=== PATIENT | male | born 1985 | race Caucasian/White ===

== ENCOUNTER 2022-10-05 10:23 | Emergency (ER) | payer OTHER, SELFPAY ==
--- NOTE | ~2022-10-05 | CT_ITS ---
EXAMINATION: CT abdomen pelvis w con DATE: 10/05/2022 13:04 INDICATION: Abdomen pain TECHNIQUE: Computed tomography (CT) of the abdomen and pelvis was performed with 100 cc Omnipaque 350 intravenous contrast. The dose-length product was 369.36 mGy-cm. Automated exposure control and iter ative reconstruction technique were employed. COMPARISON: No prior studies for comparison. . FINDINGS: Lung bases are unremarkable. Heart size normal. No significant pleural or pericardial effus ion. No significant vascular abnormality. No lymphadenopathy. No free air or free fluid. There are multiple small subcentimeter hypodense lesions of the liver, too small to characterize, alt veda statistically likely benign. Spleen, pancreas, adrenal glands and kidneys are unremarkable. Gal lbladder is contracted. Bowel pattern nonobstructive. Normal appendix. No acute osseous abnormality. The pancreas, adrenal glands and kidneys are unremarkable. There is an accessory splenule. IMPRESSION: 1. No acute abdominal abnormality. Reviewed, dictated and finalized at location B.
[2022-10-05 10:34] VITALS: BP 118/78; PULSE 89; RESP 20; TEMP 36.4; O2SAT 98
[2022-10-05 12:56] LABS: Estimated CRCL calculation 99 ml/min; Estimated Glomerular Filt Rate > 60
[2022-10-05 13:04] LABS: Basophils Percent Auto 0.5 % (0.2-1.2); Eosinophils Absolute Auto 0.7 K/mm3 (0-0.3); Eosinophils Percent Auto 8.1 % (0-4.4); Hematocrit 46.9 % (42.0-52.0); Hemoglobin 16.1 g/dL (14.0-18.0); Immature Granulocyte Absolute 0.02 K/mm3 (0.00-0.031); Immature Granulocyte Percent A 0.2 % (0-0.5); Lymphocytes Percent Auto 25.3 % (18.3-44.2); Mean Corpuscular HGB Conc 34.3 g/dl (32-36); Mean Corpuscular Volume 87.3 fl (80-100); Mean Platelet Volume 10.8 fl (7.4-10.4); Monocytes Absolute Auto 0.7 K/mm3 (0.1-0.6); Monocytes Percent Auto 8.6 % (2.6-8.5); Neutrophils Absolute Auto 4.8 K/mm3 (1.3-6.7); Neutrophils Percent Auto 57.3 % (45.5-73.1); Platelet Count Result 201 k/mm3 (150-375); Red Blood Count 5.37 M/mm3 (4.6-6.20); Red Cell Distribution Width 12.9 % (11.5-14.5); White Blood Count 8.3 K/mm3 (4.5-10.0)
[2022-10-05 13:08] LABS: Appearance Urine Clear (Clear); Bilirubin Urine Negative (Negative); Blood Urine Negative (Negative); Color Urine Yellow (Yellow); Glucose Urine UA Negative (Negative); Ketones Urine Negative (Negative); Leukocyte Esterase Ur Negative LEU/UL (Negative); Nitrate Urine Negative (Negative); Protein Urine Negative (Negative); Specific Grav Ur 1.016 (1.001-1.035); pH Urine 7.5 (5.0-9.0)
[2022-10-05 13:17] LABS: Alanine Aminotransferase 35 U/L (6-50); Albumin Level 4.7 g/dL (3.5-5.1); Alkaline Phosphatase 70 U/L (38-126); Anion Gap 8 mmol/L (8-16); Aspartate Amino Transferase 29 U/L (17-59); Bilirubin,Total 0.9 mg/dL (0.2-1.3); Blood Urea Nitrogen 13 mg/dL (9-20); Calcium 9.3 mg/dL (8.4-10.2); Carbon Dioxide 30 mmol/L (22-30); Chloride 102 mmol/L (98-107); Estimated CRCL calculation 122 ml/min; Estimated Glomerular Filt Rate > 60; Glucose 100 mg/dL (65-110); Lipase 77 U/L (23-300); Potassium 3.8 mmol/L (3.4-5.0); Sodium 140 mmol/L (137-145)
[2022-10-05 13:20] LABS: Add Urine Microscopic? NO
--- NOTE | 2022-10-05 14:13 | ED.ABDPAIN ---
HPI - Abdominal Pain General Chief Complaint: Abdominal Pain Stated Complaint: abd pain Time Seen by Provider: 10/05/22 11:43 Source: RN notes reviewed History of Present Illness HPI narrative: Patient presents emergency department from home for abdominal pain. Patient states has been having intermittent abdominal pain for the past 5 days. Patient states the pain is normally over the right lateral side of the abdomen is described as aching in nature states the pain does not radiate. States occasionally he will have pain on the left side. States that he has had feelings of chills but denies any fevers he states he has had nausea but denies any vomiting or diarrhea. He denies having any hematuria or dysuria. Denies any history of kidney stones. States that he did have 1 episode of testicular pain approximately 1 week ago and gone to the urgent care at that time but is had no testicular pain since that time denies any risk of STD Review of Systems Review of Systems: Gen.: Denies fevers reports chills Eyes: Denies eye pain or visual change ENT: Denies congestion Respiratory: Denies shortness of breath or cough CV: Denies chest pain or palpitations GI: See HPI denies burning, urgency, frequency or hematuria Musculoskeletal: Denies back pain or muscle pain Neuro: Denies numbness, tingling, weakness or focal weakness Skin: Denies rash Except as documented, all other systems reviewed and negative PMFSH Past Medical History Medical History (Updated 10/05/22 @ 14:19 by Jose Tirado DO) Patient denies significant medical history Social History Social History (Updated 10/05/22 @ 14:15 by Jose Tirado DO) Smoking status: Never smoker Exam Narrative: APPEARANCE: No acute distress, nontoxic, resting in bed EYES: EOMI HEENT: Normocephalic, atraumatic, OMM RESPIRATORY: No respiratory distress Clear to auscultation bilaterally with no rhonchi wheezing or rales. CARDIOVASCULAR: Regular rate and rhythm without murmurs rubs or gallops. ABDOMINAL: Soft, nontender, nondistended, no rebound or guarding no overlying rash seen : Circumcised male no skin lesions seen no scrotal swelling or erythema bilateral testicles nontender to palpation MUSCULOSKELETAl: Moves all extremities. No clubbing, cyanosis or edema. NEURO: Awake and alert. Following commands, speech normal, no focal deficits SKIN:: Warm, dry. No rashes lesions or abrasions PSYCHIATRIC: Normal affect/mood, Course Course Emergency Course: Patient is remained with no abdominal pain throughout stay in ED Discussed with patient results of workup and diagnosis. Discussed need for follow-up with primary care, proper use of medication, and reasons to return to the emergency department. Patient understands and agrees to current treatment plan Vital Signs Vital signs: Vital Signs Temperature 97.5 F L 10/05/22 10:34 Pulse Rate 89 10/05/22 10:34 Respiratory Rate 20 10/05/22 10:34 Blood Pressure 118/78 10/05/22 10:34 Pulse Oximetry 98 10/05/22 10:34 Oxygen Delivery Room Air 10/05/22 10:34 Temperature 97.5 F L 10/05/22 10:34 Pulse Rate 89 10/05/22 10:34 Respiratory Rate 20 10/05/22 10:34 Blood Pressure 118/78 10/05/22 10:34 Pulse Oximetry 98 10/05/22 10:34 Oxygen Delivery Room Air 10/05/22 10:34 MDM - Abdominal Pain MDM Narrative Medical decision making narrative: Patient presents for intermittent abdominal pain over on the right side for the past 5 days. Notes feeling of chills but no fevers reports nausea on exam the abdomen is soft and nontender. Initial lab results show white count within normal limits with no shift noted creatinine is normal as well as liver enzymes and lipase and a UA shows no signs of hematuria or infection. The CT scan of the abdomen pelvis was obtained to rule out kidney stone or any other pathology with no stone seen and no appendicitis no other acute process. Patient denies having any testicular
== END 2022-10-05 14:57 | disposition home or self-care (01) ==
PROVIDERS: Emergency Provider Emergency Medicine; PCP Family Medicine
DX: R10.9 Unspecified abdominal pain (principal)
CPT/HCPCS: 74177; 80053; 81003; 83690; 85025; 99284; Q9967

== ENCOUNTER → 2022-10-09 15:00 | Outpatient (CLI) | payer OTHER, SELFPAY ==
--- NOTE | ~2022-10-09 | XR_ITS ---
XR abdomen/kub 1V 10/09/2022 15:18 INDICATION: Abdominal pain TECHNIQUE: KUB COMPARISON: None FINDINGS: Bowel gas pattern is normal. There is no evidence of free air, mass, organomegaly, ascites or obstruction. No abnormal calculi are seen. The bones appear intact. IMPRESSION: 1: No acute abdominal abnormality identified. Reviewed, dictated and finalized at location B.
== END ==
PROVIDERS: PCP Physician Assistant Medical; Visit Provider Physician Assistant Medical
DX: R10.9 Unspecified abdominal pain (principal)
CPT/HCPCS: 74018